=== PATIENT | male | born 1955 | race Caucasian/White ===

== ENCOUNTER → 2018-02-21 | Outpatient (REF) | payer OTHER ==
[~2018-02-21] MED LIST: ASPIRIN325 MG OR; BENTYL10 MG OR; CALCIUM CARB500 MG OR; CHLORPROMAZ50 MG OR; COREG3.125 MG OR; DEEP SEA0.65 %; DESYREL50 MG OR; GABAPENTIN800 MG OR; GUAIFENESIN OR; IBUPROFEN800 MG OR; ISMO OR; LISINOPRIL2.5 MG OR; LOPID600 MG OR; METAMUCIL58.6 % OR; MEVACOR40 MG OR; MILK OF MAG2 OR; NEURONTIN100 MG OR; NEURONTIN800 MG OR; NITROGLYCER0.4 MG SL; PLAVIX75 MG OR; PROZAC20 M1 OR; ROBAXIN-750750 MG OR; ULTRAM50 M1 OR
[2018-02-21 11:20] LABS: ALBUMIN 3.9 g/dL (3.2-5.0); ALKALINE PHOSPHATASE 91 u/l (38-126); ANION GAP 12 (6-22 (CALC)); BILIRUBIN, TOTAL 0.4 mg/dL (0.0-1.4); BUN 12 mg/dL (8-23); BUN/CREATININE RATIO 15 (12-20 (CALC)); CARBON DIOXIDE 30 mmol/l (22-30); CHLORIDE 106 mmol/l (95-108); CREATININE 0.8 mg/dL (0.7-1.3); GFR > 60 ML/MIN (>=60 (CALC)); GFR FOR AFR.AMER. > 60 ML/MIN (>=60 (CALC)); SGOT/AST 18 u/l (19-48); SODIUM 143 mmol/l (137-146); TOTAL PROTEIN 6.5 g/dL (6.3-8.2)
== END | disposition home or self-care (01) | DRG 951 ==
LOC: LABSPEC 10:50
PROVIDERS: ATTEND Internal Medicine
DX: Z01.818 Encounter for other preprocedural examination (principal)

== ENCOUNTER 2024-01-04 06:54 | Day surgery (SDC) | payer OTHER ==
[~2024-01-04] VITALS: Ht 172.7 cm; Wt 67.6 kg
[~2024-01-04 06:54] MED LIST changes: +ATORVASTATIN CA40 MG PO; +COREG6.25 MG PO; +LIQUITEARS; +NITROSTAT0.4 MG SL; +PLAVIX75 MG PO; +TAMSULOSIN0.4 MG PO
[2024-01-04] MEDS ORDERED: FAMOTIDINE 10MG/ML 2ML SDV IV ONE (06:57)
[2024-01-04] MEDS ORDERED: LACTATED RINGER'S 1,000 ML IV ONE (06:57)
[2024-01-04 09:15] VITALS: BP 122/82
[2024-01-04] MEDS ORDERED: GLYCOPYRROLATE 0.2 MG/ML IV ONE (15:32)
[2024-01-04] MEDS ORDERED: LIDOCAINE HCL 2% 2ML SDV IV ONE (15:32)
[2024-01-04] MEDS ORDERED: METOPROLOL TARTRATE 5 MG/5 ML VIAL IV ONE (15:32)
[2024-01-04] MEDS ORDERED: PROPOFOL 200 MG/20 ML VIAL IV ONE (15:32)
== END 2024-01-04 09:35 | disposition designated cancer center or children's hospital (05) | DRG 395 ==
LOC: ENDO 06:54 → ORM 08:00 → ENDO 09:35
PROVIDERS: ATTEND Surgery
PROC: 0DJD8ZZ Inspection of Lower Intestinal Tract, Via Natural or Artificial Opening Endoscopic (ICD-10-PCS; principal; 2024-01-04)
DX: K64.8 Other hemorrhoids (principal); K64.4 Residual hemorrhoidal skin tags; I25.10 Atherosclerotic heart disease of native coronary artery without angina pectoris; I25.2 Old myocardial infarction; Z95.5 Presence of coronary angioplasty implant and graft; Z86.010 Personal history of colon polyps